=== PATIENT | male | born 1960 | race Hispanic/Latino ===

== ENCOUNTER 2019-05-12 13:07 | Emergency (ER) | payer MEDICAID ==
[2019-05-12] MEDS ORDERED: SULFAMETHOXAZOLE/TRIMETHOPRIM 800/160MG DS TAB PO ONE (16:41)
[2019-05-12] MEDS ORDERED: CLINDAMYCIN 150 MG/ML VIAL 6 ML IM ONE (16:41)
[2019-05-12] MEDS ORDERED: ACETAMINOPEN W/CODEINE 120-12MG ORAL LIQD 5 ML PO ONE (16:41)
--- NOTE | 2019-05-12 17:45 | Emergency Department Report ---
ED ENT HPI - General Chief complaint: Dental/Oral Stated complaint: RT SIDE FACE SWELLING/PAIN Time Seen by Provider: 05/12/19 16:18 Source: patient, EMS Mode of arrival: Ambulatory Limitations: No Limitations - History of Present Illness Initial comments: The patient is a 58-year-old male who presents to ED complaining of pain in the right side of his mouth and upper jaw x 5days . Patient states that the pain started 5 days ago and has increased in severity over the last 2 days with facial cellulitis. The pain is exacerbated by eating and opening of the mouth. Patient states the pain is alleviated initially with pain medication but comes back. Patient states that it radiates towards ear. Patient describes a as a throbbing, pressure-like sensation. Patient states otherwise well and has no other complaints. Patient has had no fevers and no chills. No chest pain, no shortness of breath. No abdominal pain. No shortness of breath or recent trauma to the face. MD complaint: tooth pain - Related Data Previous Rx's Medication Instructions Recorded Last Taken Type Acetaminophen/Codeine [Tylenol 1 tab PO Q6H #10 tab 05/12/19 Unknown Rx /Codeine # 3 tab] Clindamycin [Clindamycin CAP] 300 mg PO Q8H #15 cap 05/12/19 Unknown Rx Ibuprofen [Motrin] 800 mg PO Q8HR #30 tablet 05/12/19 Unknown Rx Sulfamethoxazole/Trimethoprim 1 each PO TID #21 tablet 05/12/19 Unknown Rx [Bactrim DS TAB] Allergies Allergy/AdvReac Type Severity Reaction Status Date / Time haloperidol [From Haldol] Allergy Unknown Verified 05/12/19 13:11 ED Dental HPI - General Chief complaint: Dental/Oral Stated complaint: RT SIDE FACE SWELLING/PAIN Time Seen by Provider: 05/12/19 16:18 Source: patient, EMS Mode of arrival: Ambulatory Limitations: No Limitations - Related Data Previous Rx's Medication Instructions Recorded Last Taken Type Acetaminophen/Codeine [Tylenol 1 tab PO Q6H #10 tab 05/12/19 Unknown Rx /Codeine # 3 tab] Clindamycin [Clindamycin CAP] 300 mg PO Q8H #15 cap 05/12/19 Unknown Rx Ibuprofen [Motrin] 800 mg PO Q8HR #30 tablet 05/12/19 Unknown Rx Sulfamethoxazole/Trimethoprim 1 each PO TID #21 tablet 05/12/19 Unknown Rx [Bactrim DS TAB] Allergies Allergy/AdvReac Type Severity Reaction Status Date / Time haloperidol [From Haldol] Allergy Unknown Verified 05/12/19 13:11 ED Review of Systems ROS: Stated complaint: RT SIDE FACE SWELLING/PAIN Other details as noted in HPI Comment: All other systems reviewed and negative ED Past Medical Hx - Past Medical History Previous Medical History?: Yes Hx Hypertension: Yes - Surgical History Past Surgical History?: Yes Additional Surgical History: thyroidectomy - Social History Smoking Status: Current Every Day Smoker Substance Use Type: Alcohol - Medications Home Medications: Home Medications Medication Instructions Recorded Confirmed Last Taken Type Acetaminophen/Codeine [Tylenol 1 tab PO Q6H #10 tab 05/12/19 Unknown Rx /Codeine # 3 tab] Clindamycin [Clindamycin CAP] 300 mg PO Q8H #15 cap 05/12/19 Unknown Rx Ibuprofen [Motrin] 800 mg PO Q8HR #30 tablet 05/12/19 Unknown Rx Sulfamethoxazole/Trimethoprim 1 each PO TID #21 tablet 05/12/19 Unknown Rx [Bactrim DS TAB] ED Physical Exam - General Limitations: No Limitations General appearance: alert, in no apparent distress - Head Head exam: Present: atraumatic, normocephalic - Eye Eye exam: Present: normal appearance, PERRL Pupils: Present: normal accommodation - ENT ENT exam: Present: mucous membranes moist, other (right upper jaw facial cellulitis) - Expanded ENT Exam Expanded Teeth exam: Present: dental caries, dental tenderness # (5 and 6), gingival enlargement (minimal, no pus drainage) Throat exam: Positive: normal inspection - Neck Neck exam: Present: normal inspection, full ROM. Absent: tenderness, lymphadenopathy - Respiratory Respiratory exam: Present: normal lung sounds bilaterally. Absent: respiratory distress - Cardiovascular Cardiovascular Exam: Present: regular rate, normal rhythm. Absent: systolic murmur, diastolic murmur, rubs, gallop - GI/Abdominal GI/Abdominal exam: Present: soft, normal bowel sounds - Rectal Rectal exam: Present: deferred - Extremities Exam Extremities exam: Present: normal inspection - Back Exam Back exam: Present: normal inspection - Neurological Exam Neurological exam: Present: alert, oriented X3 - Psychiatric Psychiatric exam: Present: normal affect, normal mood - Skin Skin exam: Present: warm, dry, intact, normal color. Absent: rash ED Course Vital Signs 05/12/19 13:23 Temperature 98.3 F Pulse Rate 107 H Respiratory 20 Rate Blood Pressure 135/93 O2 Sat by Pulse 98 Oximetry ED Medical Decision Making - Medical Decision Making 58-year-old male who presents with right-sided Facial pain secondary to odontogenic caries and facial cellulitis ED course: Patient received clindamycin, 2 tablets of Tylenol No. 3. Odontogenic infection versus ear infection. Based upon history and physical examination, pain is a result of an infection of tooth number 5 and 6 and that the pain Pt feels on the right side of his face and towards the ear is referred pain from this infectious process. Pt has no evidence of acute impending airway compromise. At this point, patient will be discharged home on some antibiotics and pain trial, she will do well with an outpatient course of antibiotics. Follow up with the Dental Clinic as referred Vital signs are normal patient is in no acute distress. Pt had an effect uneventful ED stay Critical care attestation.: If time is entered above; I have spent that time in minutes in the direct care of this critically ill patient, excluding procedure time. ED Disposition Clinical Impression: Dental caries extending into pulp, Facial cellulitis Disposition: DC- TO HOME OR SELFCARE Is pt being admited?: No Does the pt Need Aspirin: No Condition: Stable Instructions: Dental Caries (ED), Dental Abscess (ED) Additional Instructions: Make sure to follow up with the dentis as discussed. Take all your medications as you've been prescribed. If you have any worsening symptoms or develop new symptoms please return to ED immediately. Prescriptions: Sulfamethoxazole/Trimethoprim [Bactrim DS TAB] 1 each PO TID #21 tablet Clindamycin [Clindamycin CAP] 300 mg PO Q8H #15 cap Ibuprofen [Motrin] 800 mg PO Q8HR #30 tablet Acetaminophen/Codeine [Tylenol /Codeine # 3 tab] 1 tab PO Q6H #10 tab Referrals: PRIMARY CARE, [Primary Care Provider] - 3-5 Days [facility] [Outside] - 3-5 Days [facility] [Outside] - 3-5 Days [facility] [Outside] - 3-5 Days [facility] [Outside] - 3-5 Days Forms: Work/School Release Form(ED) Time of Disposition: 17:47
[2019-05-12 18:05] VITALS: BP 131/90
== END 2019-05-12 18:04 | disposition home or self-care (01) ==
LOC: ED 13:07
DX: K02.9 Dental caries, unspecified (principal); L03.211 Cellulitis of face; I10 Essential (primary) hypertension; F17.200 Nicotine dependence, unspecified, uncomplicated; E89.0 Postprocedural hypothyroidism; Z88.5 Allergy status to narcotic agent; Z79.1 Long term (current) use of non-steroidal anti-inflammatories (NSAID); Z79.899 Other long term (current) drug therapy
CPT/HCPCS: 96372

== ENCOUNTER 2022-05-05 05:48 | Emergency (ER) | payer MEDICAID | END 2022-05-05 09:26 | disposition left against medical advice (07) | LOC: ED 05:48 | DX: R10.9 Unspecified abdominal pain (principal); M54.9 Dorsalgia, unspecified; Z53.21 Procedure and treatment not carried out due to patient leaving prior to being seen by health care provider ==